=== PATIENT | male | born 1950 | race Caucasian/White ===

== ENCOUNTER 2016-12-30 14:03 | Inpatient (IN) | payer MEDICARE, BC ==
[~2016-12-30] VITALS: Ht 185.4 cm; Wt 123.1 kg
[2016-12-31] MEDS ORDERED: LOSA100T2 PO (11:47)
[2016-12-31] MEDS ORDERED: LORA10TA PO (11:47)
[2016-12-31] MEDS ORDERED: KRIL300C PO (11:47)
[2016-12-31] MEDS ORDERED: AMLO5TAB2 PO (11:47)
[2016-12-31] MEDS ORDERED: ALLO300T2 PO (11:47)
[2016-12-31] MEDS ORDERED: ASPI-110 PO (11:47)
[2016-12-31] MEDS ORDERED: OMEP20CA2 PO (11:47)
[2016-12-31] MEDS ORDERED: ZOCO20TA PO (11:47)
[2016-12-31] MEDS ORDERED: FOLI1TAB4 PO (12:34)
[2016-12-31] MEDS ORDERED: DIPH1TAB36 PO (12:34)
[2016-12-31] MEDS ORDERED: METH5INJ SQ (12:37)
[2017-01-17 07:10] VITALS: BP 143/75; PULSE 57; RESP 16; TEMP 98.4; O2SAT 96
[2017-01-17] MEDS ORDERED: HYDR-3288 PO (07:18)
[2017-01-17] MEDS ORDERED: ENOX40P SQ (07:19)
[2017-01-17] MEDS ORDERED: ASPI81CH37 CHEW (07:19)
[2017-01-17] MEDS ORDERED: INSULIN HUMAN REGULAR 1,000 UNITS/10 ML VIAL SQ PRN (07:45)
[2017-01-17] MEDS ORDERED: SODIUM CHLORID 0.9% 500 ML IV SCH (07:45)
[2017-01-17] MEDS: LACTATED RINGER'S 1000 ML IV SCH ×2 (07:45→08:00)
[2017-01-17] MEDS ORDERED: METOPROLOL TARTRATE 25 MG TAB PO PRN (07:45)
[2017-01-17] MEDS ORDERED: SODIUM CHLOR 0.9% 250 ML INJ 250 ML ONE (07:55)
[2017-01-17] MEDS ORDERED: ceFAZolin 2 GM PREMIX 50 ML ONE (07:55)
[2017-01-17] MEDS ORDERED: VANCOMYCIN HCL 1000 MG VIAL ONE (07:55)
[2017-01-17] MEDS ORDERED: DEXAMETHASONE SOD PHOS 20 MG/5 ML VIAL ONE (07:55)
[2017-01-17] MEDS: CHLORHEXIDINE GLUCONATE 4% SOLN 120 ML BTL TOP SCH (08:45)
[2017-01-17] MEDS: TRANEXAMIC ACID INJ 1,600 MG in SODIUM CHLORIDE 0.9% INJ 100 ML IV SCH ×2 (08:45→10:30)
[2017-01-17] MEDS: EXPAREL PERI-ARTICULAR INJECTION (TOTAL VOL. 60 ML) P-ARTICULR SCH ×4 (08:45→10:58)
[2017-01-17] MEDS ORDERED: VANCOMYCIN 1000 MG/NS 250 ML (for <70 kg) IV SCH ×2 (08:45)
[2017-01-17] MEDS: TRANEXAMIC PERI-ARTICULAR 3,000 MG/NS 100 ML P-ARTICULR SCH ×4 (08:45→10:58)
[2017-01-17] MEDS: POVIDONE IODINE 7.5% SCRUB 118 ML BOTTLE TOP SCH (08:45)
[2017-01-17] MEDS ORDERED: ceFAZolin 2 GM PREMIX 50 ML IV SCH (08:45)
[2017-01-17] MEDS ORDERED: ROPIVACAINE PERI-ARTICULAR INJECTION. PERIART SCH ×5 (08:45)
[2017-01-17] MEDS ORDERED: DEXAMETHASONE SOD PHOS 20 MG/5 ML VIAL IV ONE (08:45)
[2017-01-17] MEDS ORDERED: ACETAMINOPHEN/HYDROcodone 325 MG/7.5 MG TAB PO PRN (09:00)
[2017-01-17] MEDS ORDERED: NALOXONE HCL 0.4 MG/ML AMP IV PRN (09:00)
[2017-01-17] MEDS ORDERED: diphenhydrAMINE HCL 50 MG/ML VIAL IV PRN (09:00)
[2017-01-17] MEDS: LORATADINE 10 MG TAB PO SCH (09:00)
[2017-01-17] MEDS ORDERED: ZOLPIDEM TARTRATE 5 MG TAB PO PRN (09:00)
[2017-01-17] MEDS: SODIUM CHLORIDE 0.9% FLUSH 5 ML FLUSH IVF SCH ×2 (09:00→19:58)
[2017-01-17] MEDS: ALLOPURINOL 300 MG TAB PO SCH (09:00)
[2017-01-17] MEDS ORDERED: Post-op Orders (for Pharmacy) MISC XX ONE (09:00)
[2017-01-17] MEDS ORDERED: MORPHINE SULFATE 4 MG/ML INJ IV PUSH PRN (09:00)
[2017-01-17] MEDS ORDERED: ALUMINUM/MAGNESIUM/SIMETH 30 ML CUP PO PRN (09:00)
[2017-01-17] MEDS ORDERED: NON-FORMULARY DRUG (Losartan-Hydrochlorothiazide 1 TAB) PO SCH (09:00)
[2017-01-17] MEDS ORDERED: BISACODYL 10 MG SUPP PR PRN (09:00)
[2017-01-17] MEDS ORDERED: SODIUM CHLORIDE 0.9% FLUSH 5 ML FLUSH IVF PRN (09:00)
[2017-01-17] MEDS ORDERED: MAGNESIUM HYDROXIDE SUSP 30 ML CUP PO PRN (09:00)
[2017-01-17] MEDS ORDERED: ONDANSETRON HCL 4 MG/2 ML VIAL IVP PRN (09:00)
[2017-01-17] MEDS ORDERED: GENTAMICIN SULFATE 80 MG/2 ML VIAL ONE ×2 (09:16→11:39)
[2017-01-17] MEDS ORDERED: DEXAMETHASONE SOD PHOS 4 MG/ML VIAL ONE (09:33)
[2017-01-17] MEDS ORDERED: FAMOTIDINE 20 MG/2 ML VIAL ONE (09:33)
[2017-01-17] MEDS ORDERED: MIDAZOLAM HCL 5 MG/5 ML VIAL ONE (09:33)
[2017-01-17] MEDS ORDERED: PROPOFOL 200 MG/20 ML AMP IV ONE (09:55)
[2017-01-17] MEDS ORDERED: LACTATED RINGER'S 1000 ML INJ 1,000 ML IV ONE (09:56)
[2017-01-17] MEDS ORDERED: ONDANSETRON HCL 4 MG/2 ML VIAL IV PUSH ONE (09:56)
[2017-01-17] MEDS ORDERED: ePHEDrine/NS 25 MG/5 ML SYR IV ONE (09:56)
[2017-01-17] MEDS: HYDROCHLOROTHIAZIDE 25 MG TAB PO SCH (12:00)
[2017-01-17] MEDS: LOSARTAN 50 MG TAB PO SCH (12:00)
[2017-01-17] MEDS ORDERED: BUPIVACAINE LIPOSOME PF 1.3% 20 ML VIAL ONE (12:49)
--- NOTE | 2017-01-17 12:57 | MP ---
cc: MARILUZ CLARK DATE OF SURGERY 01/17/2017 PREOPERATIVE DIAGNOSIS Right knee osteoarthritis. POSTOPERATIVE DIAGNOSES Right knee osteoarthritis. PROCEDURE Right total knee arthroplasty. SURGEON Dr. Mariluz Clark CENTRIFUGAL OPERATOR Adryan Rankin PA-C ANESTHESIA Spinal. ESTIMATED BLOOD LOSS 50 cc COMPLICATIONS None. IMPLANTS USED DePuy Attune size 8 posterior stabilized femoral component, size 7 rotating platform tibial baseplate, size 6-mm polyethylene tibial insert, size 41-mm patella. JUSTIFICATION This patient is a 66-year-old male with a history of severe end-stage osteoarthritis involving the right knee. He has severe disabling pain with standing, walking, ambulation, weightbearing activities and even severe pain at rest. He has failed greater than two months of nonoperative conservative treatment to include medication therapy, injections, ambulatory assistive aids, home exercise program, weight loss attempts, activity modification. The patient's pain is severe and progressive in spite of conservative treatments. X-rays of the right knee reveal severe end-stage osteoarthritis with [id number] joint space narrowing, subchondral sclerosis, subchondral cysts, osteophyte formation and varus deformity. The patient was counseled as to the risks, benefits and alternatives to a total knee arthroplasty. The risks were discussed to include but are not limited to anesthesia, bleeding, infection, damage to nerves, blood vessels, failure of the components, blood clots, pulmonary embolism and even . The patient's pain is severe. He favored the benefits over the risks and did wish to proceed with surgery. PROCEDURE IN DETAIL Written consent was obtained. The patient was identified by name and taken to the operating room. Spinal anesthesia was administered as well as 2 grams of IV Ancef and 1 gram of IV vancomycin. A well-padded tourniquet was placed on the right thigh, the right lower extremity prepped and draped using isopropyl alcohol, Hibiclens solution and ChloraPrep solution. A time out was performed. An Esmarch bandage was used to exsanguinate the right lower extremity and the tourniquet inflated to 250 mmHg. A longitudinal incision was made over the anterior aspect of the right knee and medial parapatellar arthrotomy incision was performed. The patella was everted and patella resect guide was used to remove 9.5 mm of the patella. A size 41-mm guide was placed, three drill holes were placed and a 41-mm trial fit well. Attention was turned to the femur where an intramedullary guide tesha was placed and the guide was set to remove 10 mm of distal femur 5-degrees off the anatomic valgus axis alignment. An oscillating saw was used to perform the distal femoral cut. Attention was turned to the tibia where an extramedullary tibial guide was used to remove 5-mm off the lowest portion of the medial tibial plateau. The tibial guide was pinned in place and tibial cut was performed. Th 5-mm spacer block showed full extension. Attention was turned back to the femur where the AP sizer block measured a size 8. The anterior reference 3-degree external rotational guide was used to pin the size [address] The anterior, posterior and chamfer cuts were performed. A size 8 PCL box guide was pinned in place and PCL was boxed out with an oscillating saw. The medial and lateral meniscus remnants were removed as well as bone and soft tissue debris from the posterior portion of the knee. The size 7 tibial baseplate was pinned in place, the tibia was drilled and punched. Trial components were evaluated and final components cemented in place. The 6-mm tibial insert allowed for full extension to 0 degrees and flexion to 140, no evidence of tibial lift-off. Varus-valgus balance appeared appropriate and symmetric. The tourniquet was deflated. Bovie cautery was used for hemostasis. The knee was thoroughly irrigated with sterile saline antibiotic-impregnated solution. The arthrotomy incision was closed with #1 Vicryl suture, the subcutaneous layer closed with 2-0 Vicryl suture and the skin was closed with Dermabond. Sterile dressings were applied. The patient tolerated the procedure well. There was no intraoperative complication noted. Adryan Rankin, physician medical staff assistant certified, was present during the entire procedure to include patient positioning and the procedure itself. The medical necessity of a physician medical staff assistant was indicated in this case due to the complexity of the procedure. He assisted with appropriate manipulation of the leg and retraction of muscle, tendon, bone and neurovascular structures. He assisted with preparation of bone and also implantation of the prosthetic replacement. MD ANTONETTE Roman/NANCY /12:14 PM /12:38 PM
[2017-01-17] MEDS ORDERED: DO NOT ADM ANY ANTICOAGULANT DRUGS XX PRN (13:15)
[2017-01-17] MEDS: SODIUM CHLOR 0.9% 1000 ML INJ 1,000 ML IV SCH ×2 (13:15→19:58)
--- NOTE | 2017-01-17 14:14 | RADRPT ---
EXAM DATE/TIME: 01/17/2017 13:35 [facility] COMPARISON: No previous studies available for comparison. INDICATIONS : Post op right knee. MEDICAL HISTORY : None. SURGICAL HISTORY : None. ENCOUNTER: Initial ACUITY: 1 day PAIN SCORE: 4/10 LOCATION: Right knee FINDINGS: AP and lateral views of the right knee demonstrate changes consistent with recent total knee arthropl asty with metallic hardware in place in the distal femur and proximal tibia. There is a radiolucent p atellar component. There is soft tissue gas present, as expected. CONCLUSION: Expected changes are present following recent right total knee arthroplasty. Parmjit Neil MD on January 17, 2017 at 14:09 Board Certified Radiologist. This report was verified electronically.
[2017-01-17 16:51] VITALS: BP 128/80; PULSE 67; RESP 18; TEMP 97; O2SAT 94
--- NOTE | 2017-01-17 18:23 | PD.CONS ---
HPI Service [facility] Consult Requested By Primary Care Physician Michael Early DO Diagnoses: History of Present Illness This is a very pleasant 66-year-old male . The patient has problems with the right knee for a number of years. This problem has been resistant to conservative management in terms of both function and pain control. The patient had left total knee replacement earlier today. The patient was seen in the recovery unit today by the undersigned. The patient is alert and oriented and denies any complaints . He has already walked postoperatively a few steps. He was seen in the presence of his nurse . Review of Systems Other 10 systems reviewed and negative except for the above Past Family Social History Past Medical History Hypertension Hyperlipidemia Acid reflux disease Left knee arthritis Sarcoidosis, with pulmonary nodules, this affected his vision at some point, however this has gotten better with methotrexate Prostate cancer Cataracts Hearing loss for which she uses hearing aids Past Surgical History Prostate cancer surgery Left total knee replacement Right shoulder rotator cuff surgery Reported Medications Reported Meds & Active Scripts Active Aspirin Low Dose (Aspirin) 81 Mg Chew 81 Mg CHEW BID Lovenox Inj (Enoxaparin Sodium) 40 Mg/0.4 Ml Syr 40 Mg SQ DAILY Anthon (Hydrocodone-Acetaminophen) 7.5-325 mg Tab 1-2 Tab PO Q6H PRN Reported Methotrexate Inj 50 Mg/2 Ml Inj 0.8 Ml SQ WEEKLY Tylenol Pm Extra Strength (Diphenhydramine-Acetaminophen) 25-500 Mg Tab 2 Tab PO HS PRN Folate (Folic Acid) 1 Mg Tab 1 Mg PO DAILY Aspirin 81 (Aspirin) 81 Mg Tabdr 81 Mg PO DAILY Loratadine 10 Mg Tab 10 Mg PO DAILY Krill Oil 300 Mg Cap 1 Cap PO DAILY Amlodipine (Amlodipine Besylate) 5 Mg Tab 5 Mg PO HS Omeprazole 20 Mg Cap 1 Cap PO HS Zocor (Simvastatin) 20 Mg Tab 20 Mg PO HS Losartan-Hydrochlorothiazide 100-25 Mg Tab 1 Tab PO DAILY Allopurinol 300 Mg Tab 300 Mg PO DAILY Allergies: Coded Allergies: No Known Allergies (Verified , 01/17/17) Family History Reviewed but not contributory Social History No smoking, no alcohol, no illicit drug use Physical Exam Vital Signs Vital Signs Date Time Temp Pulse Resp B/P Pulse Ox O2 Delivery O2 Flow Rate FiO2 01/17/17 16:51 97.0 67 18 128/80 94 01/17/17 16:34 98.1 67 16 139/85 95 Nasal Cannula 2 01/17/17 15:00 98.0 75 16 127/81 94 Nasal Cannula 2 01/17/17 14:30 66 16 127/81 96 Nasal Cannula 2 01/17/17 14:15 74 16 95 Nasal Cannula 2 01/17/17 14:00 96.6 66 16 127/81 96 Nasal Cannula 2 01/17/17 13:45 66 16 127/81 96 Nasal Cannula 2 01/17/17 13:30 96.6 65 16 125/79 95 Nasal Cannula 2 01/17/17 13:15 64 16 137/85 96 Nasal Cannula 2 01/17/17 13:00 62 16 137/75 95 Nasal Cannula 2 01/17/17 12:45 96 16 119/82 97 Nasal Cannula 2 01/17/17 12:38 94.2 69 16 125/71 91 Nasal Cannula 2 01/17/17 07:10 98.4 57 16 143/75 96 Physical Exam GENERAL: This is a well-nourished, well-developed patient, in no apparent distress. SKIN: No rashes, ecchymoses or lesions. Cool and dry. HEAD: Atraumatic. Normocephalic. No temporal or scalp tenderness. EYES: Pupils equal round and reactive. Extraocular motions intact. No scleral icterus. No injection or drainage. ENT: Nose without bleeding, purulent drainage or septal hematoma. Throat without erythema, tonsillar hypertrophy or exudate. Uvula midline. Airway patent. NECK: Trachea midline. No JVD or lymphadenopathy. Supple, nontender, no meningeal signs. CARDIOVASCULAR: Regular rate and rhythm without murmurs, gallops, or rubs. RESPIRATORY: Clear to auscultation. Breath sounds equal bilaterally. No wheezes , rales, or rhonchi. GASTROINTESTINAL: Abdomen soft, non-tender, nondistended. No hepato-splenomegaly , or palpable masses. No guarding. MUSCULOSKELETAL: Right lower extremity clean dry surgical dressings NEUROLOGICAL: Awake and alert. Cranial nerves II through XII intact. Normal speech. Laboratory Laboratory Tests Test 01/17/17 07:49 Blood Type A POSITIVE Antibody Screen NEGATIVE Blood Bank Comment Imaging Last Impressions Knee X-Ray 01/17/17 0806 Signed Impressions: Service Date/Time: Tuesday, January 17, 2017 13:35 - CONCLUSION: Expected changes are present following recent right total knee arthroplasty. Parmjit Neil MD A/P Assessment and Plan Assessment End-stage osteoarthritis right knee Status post right total knee replacement on 01/17/17 Significant history for sarcoidosis, hypertension, hyperlipidemia, overweight Management Pain management Physical therapy Bowel regimen Patient needs to lose some weight Wound management per orthopedics Follow labs Keep hemoglobin above 8 Replace electrolytes as needed Discussed with patient Discussed with nurse Thank you for this consultation We will follow daily while hospitalized Discussed With: Nurse Dylon Carmona MD Jan 17, 2017 18:23
[2017-01-17 20:20] VITALS: BP 126/69; PULSE 60; RESP 17; TEMP 97.2; O2SAT 93
[2017-01-17] MEDS ORDERED: amLODIPine BESYLATE 5 MG TAB PO SCH (21:00)
[2017-01-17] MEDS ORDERED: PANTOPRAZOLE SOD 20 MG DELAYED RELEASE TAB PO SCH (21:00)
[2017-01-18] MEDS: ACETAMINOPHEN/HYDROcodone 325 MG/7.5 MG TAB PO PRN ×4 (00:16→12:53)
[2017-01-18 00:20] VITALS: BP 115/62; PULSE 59; RESP 16; TEMP 97.4; O2SAT 94
[2017-01-18] MEDS: SODIUM CHLOR 0.9% 1000 ML INJ 1,000 ML IV SCH (03:40)
[2017-01-18 04:05] VITALS: BP 117/67; PULSE 58; RESP 16; TEMP 96.4; O2SAT 95
[2017-01-18 08:02] VITALS: BP 135/70; PULSE 52; RESP 18; TEMP 97.1; O2SAT 98
--- NOTE | 2017-01-18 08:32 | PD.ORT.PN ---
Subjective Post Op Day #: 1 Subjective Remarks minimal pain. Objective Vitals Vital Signs Date Time Temp Pulse Resp B/P Pulse Ox O2 Delivery O2 Flow Rate FiO2 01/18/17 07:43 Room Air 01/18/17 04:05 96.4 58 16 117/67 95 01/18/17 00:20 97.4 59 16 115/62 94 01/17/17 20:20 97.2 60 17 126/69 93 01/17/17 18:44 Room Air 01/17/17 17:45 Room Air 01/17/17 16:51 97.0 67 18 128/80 94 01/17/17 16:34 98.1 67 16 139/85 95 Nasal Cannula 2 01/17/17 15:00 98.0 75 16 127/81 94 Nasal Cannula 2 01/17/17 14:30 66 16 127/81 96 Nasal Cannula 2 01/17/17 14:15 74 16 95 Nasal Cannula 2 01/17/17 14:00 96.6 66 16 127/81 96 Nasal Cannula 2 01/17/17 13:45 66 16 127/81 96 Nasal Cannula 2 01/17/17 13:30 96.6 65 16 125/79 95 Nasal Cannula 2 01/17/17 13:15 64 16 137/85 96 Nasal Cannula 2 01/17/17 13:00 62 16 137/75 95 Nasal Cannula 2 01/17/17 12:45 96 16 119/82 97 Nasal Cannula 2 01/17/17 12:38 94.2 69 16 125/71 91 Nasal Cannula 2 I/O 01/17/17 01/17/17 01/17/17 01/18/17 01/18/17 01/18/17 07:00 15:00 23:00 07:00 15:00 23:00 Intake Total 1530 ml 1424 ml 868 ml Output Total 750 ml 400 ml 350 ml Balance 780 ml 1024 ml 518 ml Intake Oral 720 ml 240 ml IV Total 300 ml 704 ml 628 ml Other 1230 ml Output Urine Total 150 ml 400 ml 350 ml Estimated Blood Loss 100 ml Other 500 ml # Bowel Movements 0 Imaging Last 24 hours Impressions Knee X-Ray 01/17/17 0855 Signed Impressions: Service Date/Time: Tuesday, January 17, 2017 13:35 - CONCLUSION: Expected changes are present following recent right total knee arthroplasty. Parmjit Neil MD Objective Remarks in bed, nad incision no erythema, no drainage neg homans nvi Assessment & Plan Ortho Post Op Day #: 1 Problem List: Assessment and Plan s/p R TKA wbat daily dressing change lovenox rx in chart d/c planning home with hhc and pt - cleared for today if pain under control f/up dr. vazquez 2 weeks Michael Rankin Jan 18, 2017 08:32
--- NOTE | 2017-01-18 08:34 | HHI.DCPOC ---
Discharge Care Plan Diagnosis: (1) Primary localized osteoarthrosis, lower leg Your Health Problems Are: Difficulty with ADL Goals to Promote Your Health * To prevent worsening of your condition and complications * To maintain your health at the optimal level Directions to Meet Your Goals Take your medications as prescribed Follow your dietary instruction Follow activity as directed Keep your appointments as scheduled Take your immunizations and boosters as scheduled If your symptoms worsen call your PCP, if no PCP go to Urgent Care Center or Emergency Room Smoking is Dangerous to Your Health. Avoid second hand smoke Call the 24-hour hour crisis hotline for domestic abuse at Michael Rankin Jan 18, 2017 08:34
--- NOTE | 2017-01-18 08:35 | HHI.FF ---
Face to Face Verification Diagnosis: (1) Primary localized osteoarthrosis, lower leg Physical Therapy Gait training, Safety evaluation, Transfer training, bed to chair Knee: Total knee, Protocol: Right, Full weight bearing Right LE Weight Bearing: WB as tolerated Nursing RN: 3 days/week x 2 weeks Nursing: Keri teaching, Dressing changes Dressing Changes: Daily dressing change I have seen patient Parmjit Arambula on 01/18/17. My clinical findings support the need for the requested home health care services because: Limited ability to care for self High risk of falls I certify that my clinical findings support that this patient is homebound because: Post-op weakness Unsteady gait/balance Michael Rankin Jan 18, 2017 08:34
[2017-01-18] MEDS: LOSARTAN 50 MG TAB PO SCH (08:38)
[2017-01-18] MEDS: LORATADINE 10 MG TAB PO SCH (08:38)
[2017-01-18] MEDS: ALLOPURINOL 300 MG TAB PO SCH (08:39)
[2017-01-18] MEDS: HYDROCHLOROTHIAZIDE 25 MG TAB PO SCH (08:39)
[2017-01-18] MEDS: POVIDONE IODINE 7.5% SCRUB 118 ML BOTTLE TOP SCH (08:45)
[2017-01-18] MEDS: CHLORHEXIDINE GLUCONATE 4% SOLN 120 ML BTL TOP SCH (08:45)
[2017-01-18 08:48] LABS: HEMATOCRIT 34.7 % (39.0-51.0); MEAN CELL VOLUME 88.7 FL (80.0-100.0); MEAN CORPUSCULAR HEMOGLOBIN 29.9 PG (27.0-34.0); MEAN CORPUSCULAR HGB CONC 33.8 % (32.0-36.0); PLATELET COUNT 191 TH/MM3 (150-450); RED BLOOD COUNT 3.92 MIL/MM3 (4.50-5.90); RED CELL DISTRIBUTION WIDTH 14.5 % (11.6-17.2); REVIEW FLAG FINAL; WHITE BLOOD COUNT 18.7 TH/MM3 (4.0-11.0)
[2017-01-18] MEDS ORDERED: PSYLLIUM FIBER SF/GF 6 GM POWD PKT PO SCH (09:00)
[2017-01-18] MEDS ORDERED: MAGNESIUM HYDROXIDE SUSP 30 ML CUP PO SCH (09:15)
[2017-01-18 09:16] LABS: BICARBONATE 26.6 MEQ/L (21.0-32.0); MAGNESIUM 1.7 MG/DL (1.5-2.5); POTASSIUM 3.4 MEQ/L (3.5-5.1)
--- NOTE | 2017-01-18 11:15 | HHI.PR ---
Subjective Subjective Remarks ambulating in hallway no fever no cp no sob has had indurated area oral cavity, back of left molar for 3 months Review of Systems Constitutional Constitutional Remarks 12 point ROS completed, negative except as noted above Vitals/Results Intake & Output 01/17/17 01/17/17 01/18/17 15:00 23:00 07:00 Intake Total 1530 ml 1424 ml 868 ml Output Total 750 ml 400 ml 350 ml Balance 780 ml 1024 ml 518 ml Intake Oral 720 ml 240 ml IV Total 300 ml 704 ml 628 ml Other 1230 ml Output Urine Total 150 ml 400 ml 350 ml Estimated Blood Loss 100 ml Other 500 ml # Bowel Movements 0 Vital Signs Vital Signs Date Time Temp Pulse Resp B/P Pulse Ox O2 Delivery O2 Flow Rate FiO2 01/18/17 08:02 97.1 52 18 135/70 98 01/18/17 07:43 Room Air 01/18/17 04:05 96.4 58 16 117/67 95 01/18/17 00:20 97.4 59 16 115/62 94 01/17/17 20:20 97.2 60 17 126/69 93 01/17/17 18:44 Room Air 01/17/17 17:45 Room Air 01/17/17 16:51 97.0 67 18 128/80 94 01/17/17 16:34 98.1 67 16 139/85 95 Nasal Cannula 2 01/17/17 15:00 98.0 75 16 127/81 94 Nasal Cannula 2 01/17/17 14:30 66 16 127/81 96 Nasal Cannula 2 01/17/17 14:15 74 16 95 Nasal Cannula 2 01/17/17 14:00 96.6 66 16 127/81 96 Nasal Cannula 2 01/17/17 13:45 66 16 127/81 96 Nasal Cannula 2 01/17/17 13:30 96.6 65 16 125/79 95 Nasal Cannula 2 01/17/17 13:15 64 16 137/85 96 Nasal Cannula 2 01/17/17 13:00 62 16 137/75 95 Nasal Cannula 2 01/17/17 12:45 96 16 119/82 97 Nasal Cannula 2 01/17/17 12:38 94.2 69 16 125/71 91 Nasal Cannula 2 CBC/BMP: 01/18/17 0835 01/18/17 0835 Lab Results Laboratory Tests Test 01/18/17 08:35 White Blood Count 18.7 TH/MM3 Red Blood Count 3.92 MIL/MM3 Hemoglobin 11.7 GM/DL Hematocrit 34.7 % Mean Corpuscular Volume 88.7 FL Mean Corpuscular Hemoglobin 29.9 PG Mean Corpuscular Hemoglobin 33.8 % Concent Red Cell Distribution Width 14.5 % Platelet Count 191 TH/MM3 Mean Platelet Volume 7.7 FL Sodium Level 141 MEQ/L Potassium Level 3.4 MEQ/L Chloride Level 105 MEQ/L Carbon Dioxide Level 26.6 MEQ/L Anion Gap 9 MEQ/L Blood Urea Nitrogen 16 MG/DL Creatinine 1.05 MG/DL Estimat Glomerular Filtration 70 ML/MIN Rate Random Glucose 127 MG/DL Calcium Level 8.3 MG/DL Phosphorus Level 2.9 MG/DL Magnesium Level 1.7 MG/DL Physical Exam General General Appearance: Well Developed, Well Nourished, No Acute Distress, Comfortable Eyes Eye Exam: Pupils Equal, Pupils Reactive, Sclera White, Extraocular Movement Intact Ears & Nose Ears & Nose Exam: Nasal Mucosa [place] Throat Throat Exam: Oral Mucosa [place] & Moist Neck Neck Exam: Neck Supple, Trachea Midline Pulmonary Resp Exam: Clear Bilaterally Cardiology CV Exam: Regular, Good Perfusion Gastrointestinal/Abdomen GI Exam: Soft, Non-Tender, Bowel Sounds Present, Non-Distended Musculoskeletal MS Exam: Joints Intact MS Remarks Right knee dressing D/I Integumentary Skin Exam: Warm, Dry Extremeties Extremities Exam: Pedal Pulses Palpable, Trace Edema Neurologic Neuro Exam: Alert, Awake, Oriented, Speech Clear, Moving All Extremities, No Focal Deficits Psychiatric Psych Exam: Appropriate Responses VTE Prophylaxis VTE Prophylaxis Device: TEDs VTE Prophylaxis Meds: Lovenox Assessment/Plan Assessment/Plan End-stage osteoarthritis right knee Status post right total knee replacement on 01/17/17 Significant history for sarcoidosis, hypertension, hyperlipidemia Management Pain management Physical therapy Bowel regimen Wound management per orthopedics Follow labs Keep hemoglobin above 8 Replace electrolytes as needed Leukocytosis, no fever, etiology unclear if still here tomorrow, repeat CBC needs to f/u ENT for oral lesion, verbalizes understanding per ortho, discharge today with HHC/PT Discussed with patient Discussed with nurse Discussed with Stella Lagos Jan 18, 2017 11:15
[2017-01-18] MEDS ORDERED: ENOXAPARIN SODIUM 40 MG/0.4 ML SYRINGE SQ SCH (11:30)
[2017-01-18] MEDS ORDERED: POTASSIUM CL 40 MEQ/30 ML LIQ UDC PO ONE (11:30)
[2017-01-18] MEDS: SODIUM CHLORIDE 0.9% FLUSH 5 ML FLUSH IVF SCH (11:41)
[2017-01-18 11:54] VITALS: RESP 17
[2017-01-18] MEDS ORDERED: DOCUSATE SODIUM 100 MG CAP PO SCH (21:00)
[2017-01-18] MEDS ORDERED: SENNOSIDES 8.6 MG TAB PO SCH (21:00)
[2017-01-18] MEDS ORDERED: MULTIVITAMINS/MINERALS THERAPEUTIC TAB PO SCH (21:00)
--- NOTE | 2017-01-26 10:48 | MD ---
cc: MARILUZ BERGER ADMISSION DATE: 01/17/2017 DISCHARGE DATE: 01/18/2017 ADMISSION DIAGNOSIS Severe degenerative osteoarthritis right knee DISCHARGE DIAGNOSIS Severe degenerative osteoarthritis right knee HISTORY OF PRESENT ILLNESS Mr. Arambula is a 66-year-old male who presented to the [facility] for evaluation by Dr. Mariluz Berger regarding his severe and progressive right knee pain. The patient's does have a history of a left total knee arthroplasty which is well functioning. The patient states his right knee is currently inhibiting his activities of daily living and his ability to exercise. He states he has a constant severe right knee pain that is aggravated by weightbearing activities. In the past, he has tried medications, bracing, home exercise program, physical therapy, multiple corticosteroid injections and even viscosupplementation injections without significant relief of symptoms. The patient does have x-ray evidence of severe degenerative osteoarthritis of the right knee. While in the office, the patient was counseled on the diagnosis and treatment options. The risks, benefits, and indications were all discussed in great detail. The patient did elect to proceed with surgical intervention to include a right total knee arthroplasty. Date of surgery 01/17/2017, right total knee arthroplasty. Postop after surgery, the patient admitted to [facility] where he received appropriate medical management, pain control, DVT prophylaxis and physical therapy. DISCHARGE Once being discharged from the hospital, the patient is cleared to go home where he will receive home health care and home physical therapy. He is in stable condition. He may weight-bear as tolerated. The patient is to receive daily dressing changes and has been instructed on appropriate wound care management. The patient has been provided prescriptions for pain control as well as DVT prophylaxis medication. He has also been provided a follow-up appointment to see Dr. Mariluz Berger in the office approximately two weeks from date of surgery. The patient has asked appropriate questions which have been answered. The patient has been discharged. Dictated by TASHIA Brandon MD ANTONETTE Roman/PARADISE /9:13 AM /10:35 AM
== END 2017-01-18 13:53 | disposition home health service (06) | DRG 470 ==
LOC: HSDI 01-17 07:01 → N06B 01-17 16:53
PROVIDERS: ADMIT Orthopaedic Surgery Sports Medicine; ATTEND Orthopaedic Surgery Sports Medicine
PROC: 3E0T3CZ (ICD-10-PCS; 2017-01-17)
PROC: 0SRC0J9 Replacement of Right Knee Joint with Synthetic Substitute, Cemented, Open Approach (ICD-10-PCS; principal; 2017-01-17 10:14)
DX: M17.11 Unilateral primary osteoarthritis, right knee (principal); D86.9 Sarcoidosis, unspecified; I10 Essential (primary) hypertension; E78.5 Hyperlipidemia, unspecified; K21.9 Gastro-esophageal reflux disease without esophagitis; H91.90 Unspecified hearing loss, unspecified ear; H26.9 Unspecified cataract; E66.3 Overweight; K13.70 Unspecified lesions of oral mucosa; Z68.35 Body mass index [BMI] 35.0-35.9, adult; Z85.46 Personal history of malignant neoplasm of prostate
CPT/HCPCS: 73560; 80048; 83735; 84100; 85027; 86850; 86900; 86901; 94150; C1776; C9290; J0690; J1100; J1580; J1650; J2250; J2270; J2405; J3370; J7030; J7050; J7120; L1830

== ENCOUNTER → 2016-12-31 | Outpatient (CLI) | payer MEDICARE, BC ==
[~2016-12-31] MED LIST: ALLO100 PO; ALLO300T2 PO; AMLO5TAB2 PO; ASPI-110 PO; ASPI81 PO; ASPI81CH37 CHEW; ATEN1TAB73 PO; CELE100 PO; COZA25TA PO; DIPH1TAB36 PO; ENOX40P SQ; ERYT333T19 PO; FOLI1TAB4 PO; HYDR-3288 PO; KRIL300C PO; LORA10TA PO; LORTA5 PO; LOSA100T2 PO; METH2.5 PO; METH5INJ SQ; METH750T2 PO; OMEP20CA2 PO; OMEP20TA39 PO; SIMV20 PO; ZOCO20TA PO
--- NOTE | 2016-12-31 12:51 | RADRPT ---
EXAM DATE/TIME: 12/31/2016 12:29 [facility] COMPARISON: No previous studies available for comparison. INDICATIONS : Evaluate pneumonia, pneumothorax or communicable disease. Pre-op right knee replacement 01/17/2017. MEDICAL HISTORY : None. SURGICAL HISTORY : None. ENCOUNTER: Initial ACUITY: 1 day PAIN SCORE: 0/10 LOCATION: Bilateral chest FINDINGS: PA and lateral views of the chest demonstrate the lungs to be symmetrically aerated without evidence of mass, infiltrate or effusion. The cardiomediastinal contours are unremarkable. Osseous structure s are intact. CONCLUSION: No acute disease. Alberto Hernandez MD on December 31, 2016 at 12:49 Board Certified Radiologist. This report was verified electronically.
[2016-12-31 13:00] LABS: AUTOMATED NEUTROPHIL # 4.8 TH/MM3 (1.8-7.7); BASOPHIL # 0.1 TH/MM3 (0-0.2); BASOPHIL % 1.3 % (0.0-2.0); EOSINOPHIL # 0.1 TH/MM3 (0-0.4); EOSINOPHIL % 2.1 % (0.0-4.0); HEMATOCRIT 39.7 % (39.0-51.0); HEMO FLAGS DIFF FINAL; LYMPH % 20.5 % (9.0-44.0); LYMPHOCYTE # 1.4 TH/MM3 (1.0-4.8); MEAN CELL VOLUME 88.7 FL (80.0-100.0); MEAN CORPUSCULAR HEMOGLOBIN 30.3 PG (27.0-34.0); MEAN CORPUSCULAR HGB CONC 34.1 % (32.0-36.0); NEUT % 69.1 % (16.0-70.0); PLATELET COUNT 186 TH/MM3 (150-450); RED BLOOD COUNT 4.48 MIL/MM3 (4.50-5.90); RED CELL DISTRIBUTION WIDTH 14.6 % (11.6-17.2)
[2016-12-31 13:01] LABS: BLOOD, URINE NEG (NEG); GLUCOSE,URINE NEG (NEG); KETONE, URINE NEG (NEG); NITRITE,URINE NEG (NEG); PH, URINE 7.5 (5.0-8.5); URINE COLOR YELLOW (YELLW/STRAW)
[2016-12-31 13:07] LABS: APTT (PATIENT) 29.8 SEC (24.3-30.1); INTERNATIONAL NORMALIZED RATIO 0.9 RATIO; PROTHROMBIN TIME - PATIENT 10.3 SEC (9.8-11.6)
[2016-12-31 13:09] LABS: COMMENT (UR) CULT NOT INDICATED; CULTURE IF INDICATED CULT NOT INDICATED
[2016-12-31 13:29] LABS: ANION GAP 7 MEQ/L (5-15); BICARBONATE 30.9 MEQ/L (21.0-32.0); BLOOD UREA NITROGEN 17 MG/DL (7-18); CHLORIDE 105 MEQ/L (98-107); GLUCOSE,FASTING 88 MG/DL (74-99); POTASSIUM 3.8 MEQ/L (3.5-5.1); SODIUM (NA) 143 MEQ/L (136-145)
[2016-12-31 13:32] LABS: ALKALINE PHOSPHATASE 68 U/L (45-117); ALT (GPT) 33 U/L (12-78); AST (GOT) 16 U/L (15-37); GLOMERULAR FILTRATION RATE 69 ML/MIN (>89); TOTAL BILIRUBIN ADULT 0.8 MG/DL (0.2-1.0)
[2016-12-31 13:51] LABS: WESTERGREN SEDIMENTATION RATE 7 mm/hr (0-20)
--- NOTE | 2017-01-01 16:53 | EKG ---
Date Performed: 12/31/2016 Time Performed: 11:33:13 PTAGE: 66 years EKG: SINUS BRADYCARDIA MARKED LEFT AXIS DEVIATION RIGHT BUNDLE BRANCH BLOCK ABNORMAL ECG NO PREVIOUS TRACING DOCTOR: Neo Presley Interpretating Date/Time 01/01/2017 16:52:26
== END ==
LOC: CPRE 11:04
PROVIDERS: ATTEND Orthopaedic Surgery Sports Medicine
DX: Z01.810 Encounter for preprocedural cardiovascular examination (principal); Z01.812 Encounter for preprocedural laboratory examination; Z01.818 Encounter for other preprocedural examination; M17.11 Unilateral primary osteoarthritis, right knee; R94.31 Abnormal electrocardiogram [ECG] [EKG]
CPT/HCPCS: 36415; 71020; 80053; 81001; 85025; 85610; 85652; 85730; 93005

== ENCOUNTER → 2017-03-08 | Outpatient (CLI) | payer MEDICARE, BC ==
[~2017-03-08] MED LIST changes: -ALLO100 PO; -ASPI-110 PO; -ASPI81 PO; -ATEN1TAB73 PO; -CELE100 PO; -COZA25TA PO; -ERYT333T19 PO; -LORTA5 PO; -METH2.5 PO; -METH750T2 PO; -OMEP20TA39 PO; -SIMV20 PO
[2017-03-08 13:18] LABS: AUTOMATED NEUTROPHIL # 4.7 TH/MM3 (1.8-7.7); BASOPHIL % 0.7 % (0.0-2.0); EOSINOPHIL # 0.2 TH/MM3 (0-0.4); EOSINOPHIL % 2.3 % (0.0-4.0); HEMATOCRIT 40.2 % (39.0-51.0); HEMO FLAGS DIFF FINAL; LYMPH % 20.8 % (9.0-44.0); LYMPHOCYTE # 1.4 TH/MM3 (1.0-4.8); MEAN CELL VOLUME 89.9 FL (80.0-100.0); MEAN CORPUSCULAR HEMOGLOBIN 29.3 PG (27.0-34.0); MEAN CORPUSCULAR HGB CONC 32.6 % (32.0-36.0); MONO % 7.9 % (0.0-8.0); NEUT % 68.3 % (16.0-70.0); PLATELET COUNT 228 TH/MM3 (150-450); RED BLOOD COUNT 4.48 MIL/MM3 (4.50-5.90); RED CELL DISTRIBUTION WIDTH 15.3 % (11.6-17.2); WHITE BLOOD COUNT 6.8 TH/MM3 (4.0-11.0)
[2017-03-08 13:38] LABS: ALKALINE PHOSPHATASE 72 U/L (45-117); ALT (GPT) 33 U/L (12-78); ANION GAP 9 MEQ/L (5-15); AST (GOT) 18 U/L (15-37); BICARBONATE 27.8 MEQ/L (21.0-32.0); BLOOD UREA NITROGEN 13 MG/DL (7-18); CHLORIDE 106 MEQ/L (98-107); GLOMERULAR FILTRATION RATE 69 ML/MIN (>89); POTASSIUM 3.7 MEQ/L (3.5-5.1); SODIUM (NA) 143 MEQ/L (136-145); TOTAL BILIRUBIN ADULT 0.9 MG/DL (0.2-1.0)
== END ==
LOC: PLAB 09:56
DX: D86.8 Sarcoidosis of other sites (principal); Z79.899 Other long term (current) drug therapy
CPT/HCPCS: 36415; 80053; 85025

== ENCOUNTER → 2017-12-06 | Outpatient (CLI) | payer MEDICARE, BC ==
[~2017-12-06] MED LIST changes: -ASPI81CH37 CHEW; +ASPI81CH6 CHEW
[2017-12-06 13:07] LABS: AUTOMATED NEUTROPHIL # 3.2 TH/MM3 (1.8-7.7); BASOPHIL # 0.1 TH/MM3 (0-0.2); BASOPHIL % 1.4 % (0.0-2.0); EOSINOPHIL # 0.2 TH/MM3 (0-0.4); EOSINOPHIL % 3.1 % (0.0-4.0); HEMATOCRIT 40.2 % (39.0-51.0); HEMOGLOBIN 13.8 GM/DL (13.0-17.0); LYMPH % 28.7 % (9.0-44.0); LYMPHOCYTE # 1.6 TH/MM3 (1.0-4.8); MEAN CELL VOLUME 89.7 FL (80.0-100.0); MEAN CORPUSCULAR HEMOGLOBIN 30.7 PG (27.0-34.0); MEAN CORPUSCULAR HGB CONC 34.2 % (32.0-36.0); MEAN PLATELET VOLUME 7.6 FL (7.0-11.0); MONO % 9.7 % (0.0-8.0); MONOCYTE # 0.5 TH/MM3 (0-0.9); NEUT % 57.1 % (16.0-70.0); PLATELET COUNT 245 TH/MM3 (150-450); RED BLOOD COUNT 4.49 MIL/MM3 (4.50-5.90); RED CELL DISTRIBUTION WIDTH 15.3 % (11.6-17.2); WHITE BLOOD COUNT 5.6 TH/MM3 (4.0-11.0)
[2017-12-06 13:36] LABS: AST (GOT) 41 U/L (15-37); BICARBONATE 31.4 MEQ/L (21.0-32.0); BLOOD UREA NITROGEN 22 MG/DL (7-18); CALCIUM 9.2 MG/DL (8.5-10.1); CHLORIDE 107 MEQ/L (98-107); CREATININE 1.26 MG/DL (0.60-1.30); GLOMERULAR FILTRATION RATE 57 ML/MIN (>89); GLUCOSE,RANDOM 98 MG/DL (74-106); SODIUM (NA) 143 MEQ/L (136-145)
[2017-12-06 13:39] LABS: ALKALINE PHOSPHATASE 82 U/L (45-117); ALT (GPT) 64 U/L (12-78); TOTAL BILIRUBIN ADULT 0.8 MG/DL (0.2-1.0); TOTAL PROTEIN 7.4 GM/DL (6.4-8.2)
== END ==
LOC: PLAB 10:26
DX: Z79.899 Other long term (current) drug therapy (principal)
CPT/HCPCS: 36415; 80053; 85025

== ENCOUNTER 2018-09-23 13:01 | Observation (INO) ==
[2018-09-23] MEDS ORDERED: Aspirin 325 MG Tablet PO ONE (14:14)
--- NOTE | 2018-09-23 14:14 | ECG ---
Date Performed: 09/23/2018 Time Performed: 13:39:14 PTAGE: 68 years EKG: ATRIAL FIBRILLATION BORDERLINE LEFT AXIS DEVIATION RIGHT BUNDLE BRANCH BLOCK ABNORMAL ECG C ompared to prior electrocardiogram, Atrial fibrillation is now present. PREVIOUS TRACING : 12/31/2016 11.33 DOCTOR: Prakash Mar Interpretating Date/Time 09/23/2018 14:12:40
[2018-09-23 15:49] LABS: Baso # (Auto) 0.1 th/mm3 (0.0-0.2); Baso % (Auto) 1.3 % (0.0-2.0); Eos # (Auto) 0.1 th/mm3 (0.0-0.4); Eos % (Auto) 0.8 % (0.0-4.0); Hematocrit 40.3 % (39.0-51.0); Hemoglobin 13.8 gm/dL (13.0-17.0); Lymph # (Auto) 1.8 th/mm3 (1.0-4.8); Lymph % (Auto) 22.2 % (9.0-44.0); Mean Corpuscular HGB Conc 34.3 % (32.0-36.0); Mean Corpuscular Hemoglobin 31.4 pg (27.0-34.0); Mean Corpuscular Volume 91.7 fL (80.0-100.0); Mean Platelet Volume 8.4 fL (7.0-11.0); Mono # (Auto) 0.6 th/mm3 (0.0-0.9); Mono % (Auto) 7.8 % (0.0-8.0); Neut # (Auto) 5.5 th/mm3 (1.8-7.7); Neut % (Auto) 67.9 % (16.0-70.0); Platelet Count 243 th/mm3 (150-450); Red Blood Count 4.39 mil/mm3 (4.50-5.90); Red Cell Distribution Width 14.6 % (11.6-17.2); White Blood Count 8.1 th/mm3 (4.0-11.0)
--- NOTE | 2018-09-23 15:50 | XR ---
EXAM DATE: 09/23/2018 3:22 PM EST AGE/SEX: 68 years / Male INDICATIONS: Vertigo. CLINICAL DATA: This is the patient's initial encounter. Patient reports that signs and symptoms have been present for 1 day and indicates a pain score of 0/10. MEDICAL/SURGICAL HISTORY: None. None. [place] [facility] [place]. . FINDINGS: A single AP view of the chest demonstrates the lungs to be symmetrically aerated without evidence of mass, infiltrate or effusion. The cardiomediastinal contours are unremarkable. Osseous structures a re intact. CONCLUSION: No evidence of acute cardiopulmonary disease. Electronically signed by: Parmjit Samuel MD 09/23/2018 3:49 PM EST
[2018-09-23 16:06] LABS: Alkaline Phosphatase 82 U/L (45-117); Total Protein 7.7 g/dL (6.4-8.2)
[2018-09-23 16:07] LABS: Alanine Aminotransferase 40 U/L (12-78); Albumin 3.9 g/dL (3.4-5.0); Anion Gap 8 meq/L (5-15); Aspartate Aminotransferase 53 U/L (15-37); Blood Urea Nitrogen 31 mg/dL (7-18); Carbon Dioxide 31.2 meq/L (21.0-32.0); Chloride 99 meq/L (98-107); Glomerular Filtration Rate 51 mL/min (>89); Glucose,Random 82 mg/dL (74-106); Potassium 4.1 meq/L (3.5-5.1); Sodium 138 meq/L (136-145)
[2018-09-23 16:33] LABS: Activated Partial Thrombo Time 30.6 sec (23.4-31.7); Prothrombin Time 10.1 sec (9.8-11.6)
[2018-09-23 16:54] LABS: Creatine Kinase 299 U/L (39-308)
[2018-09-23] MEDS ORDERED: Sodium Chlor 0.9% Inj 500 ML IV.SIG SCH (17:00)
[2018-09-23 17:08] LABS: Creatine Kinase MB 5.3 ng/mL (0.5-3.6)
--- NOTE | 2018-09-23 18:26 | CT ---
EXAM DATE: 09/23/2018 6:13 PM EST AGE/SEX: 68 years / Male INDICATIONS: Dizziness and fluctuating blood pressure; rule out pulmonary embolus. CLINICAL DATA: This is the patient's initial encounter. Patient reports that signs and symptoms have been present for 1 day and indicates a pain score of 0/10. MEDICAL/SURGICAL HISTORY: Carcinoma, prostatic. Hypertension. None. Hernia repair RADIATION DOSE: 21.50 CTDI (mGy) COMPARISON: No prior exams available for comparison. TECHNIQUE: Volumetric scanning was performed using a multi-row detector CT scanner during bolus infu vamshi of 74 ml Omnipaque 350 (iohexol) nonionic water-soluble contrast as a single exam dose. The veto a was post processed with a variety of visualization algorithms including full volume maximum intensi ty projection and sliding thin slab reformation. Using automated exposure control and adjustment of the mA and/or kV according to patient size, radiation dose was kept as low as reasonably achievable t o obtain optimal diagnostic quality images. DICOM format image data is available electronically for review and comparison. FINDINGS: There is no pulmonary embolus. Heart size within normal limits. Scattered coronary artery calcification noted both right and left-si ded. Shotty mediastinal and bilateral hilar lymph nodes are present and some of them are partially calcifi ed. No infiltrate, effusion or pneumothorax. Scattered calcified and noncalcified bilateral pulmonary nod ules are present. Largest noncalcified nodules in the left lower lobe and measures 7 mm. CONCLUSION: 1. No pulmonary embolus. 2. Scattered subcentimeter pulmonary nodules and follow-up noncontrast chest CT in 6 months is recom mended. 3. Clear lungs otherwise. No pneumonia. 4. Nonspecific upper limits of normal mediastinal and hilar lymph nodes. Some reflect previous granu lomatous exposure. Electronically signed by: Parmjit Samuel MD 09/23/2018 6:25 PM EST
--- NOTE | 2018-09-23 18:37 | ED ---
HPI General Chief Complaint: Chest Pain Stated Complaint: vertigo Time Seen by Provider: 09/23/18 14:04 Source: patient and family Mode of arrival: ambulatory Limitations: no limitations History of Present Illness HPI narrative: 68-year-old male the presents to the ED for evaluation of dizziness, palpitations, possible stress. Per patient he has been having dizziness for about 3 weeks now. Per patient is getting more significant. Per patient unfortunately he lost his on Tuesday of this week. Per family and patient he has been going downhill since this happened. He has not been eating or drinking. He has not been taking care of himself. He apparently does take a diuretic for lower leg edema thought per patient has drastically improved. Per patient he does not know if this is related to that. He denies any chest pain but states that he does feel pressure on his chest and feels palpitations on occasion and sometimes when he gets worked up. He denies any urinary or bowel movement issues. No fevers chills or sweats. Per patient he was seen at [facility] about a week ago for evaluation of the dizziness and was told that his potassium was low. Per patient he was given potassium IV and released. He denies any other medical issues at this time. Overall patient states that he feels well other than the dizziness. Apparently per family they are concerned the patient might have sick heart syndrome and they are concerned about this as well as possible cardiac disease. Patient currently denies any pain but states that whenever he has the pressure he feels like a 4 out of 10 and is not really painful but pressure-like. No recent travel. No numbness, tingling, weakness. Related Data Home Medications Medication Instructions Recorded Confirmed allopurinol 300 mg PO DAILY 09/23/18 09/23/18 amlodipine 5 mg PO DAILY 09/23/18 09/23/18 aspirin [Aspirin Low Dose] 81 mg PO DAILY 09/23/18 09/23/18 folic acid 1 mg PO DAILY 09/23/18 09/23/18 losartan-hydrochlorothiazide 1 tab PO DAILY 09/23/18 09/23/18 methotrexate sodium 7.5 mg SUBCUT QWEEK 09/23/18 09/23/18 omeprazole 20 mg PO DAILY 09/23/18 09/23/18 simvastatin 20 mg PO QPM 11/10/18 11/10/18 Allergies Allergy/AdvReac Type Severity Reaction Status Date / Time No Known Allergies Allergy Verified 09/23/18 17:40 Review of Systems ROS: all other systems reviewed are negative [facility] Medical History Medical History Hypertension (Acute) Prostate cancer (Acute) Sarcoidosis (Acute) Surgical History Surgical History H/O hernia repair (Acute) H/O knee surgery (Acute) H/O shoulder surgery (Acute) Family History Family History Other Family history of acute myocardial infarction Family history of diabetes mellitus Family history of hypertension Social History Social History Substance History: No History of Abuse Second Hand Smoke Exposure: No Smoking Status: Former smoker Tobacco Type: Cigarettes How Often Do You Have a Drink Containing Alcohol: Monthly or less Recent Travel in [facility] within the Last 8 Weeks: No Recent Out of Country Travel within the Last 8 Weeks: No Immunization History Tetanus Immunization: Unsure Exam Narrative Exam Narrative: GENERAL: Well-appearing SKIN: Focused skin assessment warm/dry. HEAD: Atraumatic. Normocephalic. EYES: Pupils equal and round. No scleral icterus. No injection or drainage. ENT: No nasal bleeding or discharge. Mucous membranes pink and moist. NECK: Trachea midline. No JVD. CARDIOVASCULAR: Regular rate and rhythm. No murmur appreciated. RESPIRATORY: No accessory muscle use. Clear to auscultation. Breath sounds equal bilaterally. GASTROINTESTINAL: Abdomen soft, non-tender, nondistended. Hepatic and splenic margins not palpable. MUSCULOSKELETAL: No obvious deformities. No clubbing. No cyanosis. No edema. Full range of motion of the upper and lower extremities bilaterally. 2+ pulses bilaterally. NEUROLOGICAL: Awake and alert. No obvious cranial nerve deficits. Motor grossly within normal limits. Normal speech. PSYCHIATRIC: Appropriate mood and affect; insight and judgment normal. Course Initial Documented Vital Signs Temperature 98.5 F 09/23/18 13:25 Pulse Rate 97 H 09/23/18 13:25 Respiratory Rate 19 09/23/18 13:25 Blood Pressure 116/74 09/23/18 13:25 Pulse Oximetry 96 09/23/18 13:25 Last Documented Vital Signs Temperature 98.5 F 09/23/18 13:25 Pulse Rate 53 L 09/23/18 16:32 Respiratory Rate 15 09/23/18 16:32 Blood Pressure 116/68 09/23/18 16:32 Pulse Oximetry 98 09/23/18 16:32 Medical Decision Making MANUEL Attestation MANUEL supervised visit: Yes Attestation: I, Dr. barron, have reviewed the advance practice practitioner's documentation and am in agreement, met with the patient face to face, made the diagnosis, and the medical decision making was done by me. *My assessment and Findings: 68-year-old male presents with chest pain. He recently lost his . Patient does have cardiac risk factors with family history, hypertension and age. Initial workup is normal. Patient agrees to chest pain center observation MDM Narrative Medical decision making narrative: 68-year-old male the presents to the ED for evaluation of dizziness, chest pressure and other complaints. Patient was properly examined and was found to have signs and symptoms consistent with appears to be possible cardiac in nature. The suspect that stress is related to all of the symptoms as patient recently lost his and apparently his had multiple medical issues before she . At this time labs and imaging were ordered. Labs and imaging were essentially unremarkable at this time other than positive d-dimer. CTA was done and was essentially negative. My attending Dr. Barron herself spoke with the patient and recommends admission for obscured patient was admitted to the chest pain center by me. Patient agrees to proceed with this. Medical Screen Exam Complete: Yes Emergency Medical Condition: Yes Differential Diagnosis Differential Diagnosis: Chest pain versus typical chest pain versus dizziness versus syncope versus presyncope versus normal exam Medical Records Medical records reviewed: Yes I reviewed the patient's medical records. Lab Data Lab results reviewed: Yes I reviewed the patient's lab results. Result diagrams: 09/23/18 15:20 09/23/18 15:20 Lab Results 09/23/18 09/23/18 09/23/18 Range/Units 15:20 15:20 15:20 WBC 8.1 (4.0-11.0) th/mm3 RBC 4.39 L (4.50-5.90) mil/mm3 Hgb 13.8 (13.0-17.0) gm/dL Hct 40.3 (39.0-51.0) % MCV 91.7 (80.0-100.0) fL MCH 31.4 (27.0-34.0) pg MCHC 34.3 (32.0-36.0) % RDW 14.6 (11.6-17.2) % Plt Count 243 (150-450) th/mm3 MPV 8.4 (7.0-11.0) fL Neut % (Auto) 67.9 (16.0-70.0) % Lymph % (Auto) 22.2 (9.0-44.0) % [place] % (Auto) 7.8 (0.0-8.0) % Eos % (Auto) 0.8 (0.0-4.0) % Baso % (Auto) 1.3 (0.0-2.0) % Neut # (Auto) 5.5 (1.8-7.7) th/mm3 Lymph # (Auto) 1.8 (1.0-4.8) th/mm3 [place] # (Auto) 0.6 (0.0-0.9) th/mm3 Eos # (Auto) 0.1 (0.0-0.4) th/mm3 Baso # (Auto) 0.1 (0.0-0.2) th/mm3 WBC Differential . Differential Comment Auto diff final PT (9.8-11.6) sec INR Ratio APTT (23.4-31.7) sec D-Dimer Quant (PE/DVT) 0.61 H (0.00-0.50) mg/L FEU Sodium 138 (136-145) meq/L Potassium 4.1 (3.5-5.1) meq/L Chloride 99 (98-107) meq/L Carbon Dioxide 31.2 (21.0-32.0) meq/L Anion Gap 8 (5-15) meq/L BUN 31 H (7-18) mg/dL Creatinine 1.39 H (0.60-1.30) mg/dL Estimated GFR 51 L (>89) mL/min Random Glucose 82 (74-106) mg/dL Calcium 9.0 (8.5-10.1) mg/dL Magnesium (1.5-2.5) mg/dL Total Bilirubin 0.9 (0.2-1.0) mg/dL AST 53 H (15-37) U/L ALT 40 (12-78) U/L Alkaline Phosphatase 82 (45-117) U/L Total Creatine Kinase (39-308) U/L CK-MB (CK-2) (0.5-3.6) ng/mL Troponin I Less than 0.02 L (0.02-0.05) ng/mL B-Natriuretic Peptide (0-100) pg/mL Total Protein 7.7 (6.4-8.2) g/dL Albumin 3.9 (3.4-5.0) g/dL 09/23/18 09/23/18 09/23/18 Range/Units 15:20 15:20 15:20 WBC (4.0-11.0) th/mm3 RBC (4.50-5.90) mil/mm3 Hgb (13.0-17.0) gm/dL Hct (39.0-51.0) % MCV (80.0-100.0) fL MCH (27.0-34.0) pg MCHC (32.0-36.0) % RDW (11.6-17.2) % Plt Count (150-450) th/mm3 MPV (7.0-11.0) fL Neut % (Auto) (16.0-70.0) % Lymph % (Auto) (9.0-44.0) % [place] % (Auto) (0.0-8.0) % Eos % (Auto) (0.0-4.0) % Baso % (Auto) (0.0-2.0) % Neut # (Auto) (1.8-7.7) th/mm3 Lymph # (Auto) (1.0-4.8) th/mm3 [place] # (Auto) (0.0-0.9) th/mm3 Eos # (Auto) (0.0-0.4) th/mm3 Baso # (Auto) (0.0-0.2) th/mm3 WBC Differential Differential Comment PT 10.1 (9.8-11.6) sec INR 1.0 Ratio APTT 30.6 (23.4-31.7) sec D-Dimer Quant (PE/DVT) (0.00-0.50) mg/L FEU Sodium (136-145) meq/L Potassium (3.5-5.1) meq/L Chloride (98-107) meq/L Carbon Dioxide (21.0-32.0) meq/L Anion Gap (5-15) meq/L BUN (7-18) mg/dL Creatinine (0.60-1.30) mg/dL Estimated GFR (>89) mL/min Random Glucose (74-106) mg/dL Calcium (8.5-10.1) mg/dL Magnesium 2.0 (1.5-2.5) mg/dL Total Bilirubin (0.2-1.0) mg/dL AST (15-37) U/L ALT (12-78) U/L Alkaline Phosphatase (45-117) U/L Total Creatine Kinase 299 (39-308) U/L CK-MB (CK-2) 5.3 H (0.5-3.6) ng/mL Troponin I (0.02-0.05) ng/mL B-Natriuretic Peptide 11 (0-100) pg/mL Total Protein (6.4-8.2) g/dL Albumin (3.4-5.0) g/dL Imaging Data Attestation: I personally reviewed and interpreted this imaging study as follows : Radiologist's impression: Chest X-Ray 09/23/18 14:14 CONCLUSION: No evidence of acute cardiopulmonary disease. Chest CTA 09/23/18 16:04 CONCLUSION: 1. No pulmonary embolus. 2. Scattered subcentimeter pulmonary nodules and follow-up noncontrast chest CT in 6 months is recommended. 3. Clear lungs otherwise. No pneumonia. 4. Nonspecific upper limits of normal mediastinal and hilar lymph nodes. Some reflect previous granulomatous exposure. ECG Data Attestation: I personally reviewed and interpreted this ECG as follows: Interpretation: EKG shows sinus rhythm with no sign of acute ischemia and arrhythmia read by me and attending. Discharge Plan Discharge Disposition Patient Disposition: 30 Still Patient Discharge Details Diagnosis: Chest pain Physicians Team ED Provider: Ronda Barron ED Midlevel Provider: Gonzalo Berger Primary Care Provider: Nahid Cole Attending Provider: Neo Presley ED Status: Admitted Observation Patient
[2018-09-23] MEDS ORDERED: Acetaminophen 500 MG Tablet PO PRN (19:11)
[2018-09-23 20:30] LABS: Creatine Kinase 156 U/L (39-308)
[2018-09-24 03:12] LABS: Creatine Kinase 152 U/L (39-308)
[2018-09-24 08:30] VITALS: RESP 20; O2SAT 97
[2018-09-24] MEDS ORDERED: Regadenoson Inj 0.4 MG/5 ML Syringe IV.PUSH ONE (09:42)
--- NOTE | 2018-09-24 10:24 | P.HPCA ---
History of Present Illness Primary Care Physician: Nahid Cole MD Chief Complaint: Chest pain History of Present Illness: This is a 68-year-old male history of hypertension, hyperlipidemia, GERD, gout, and sarcoid uveitis presents to ED with primary complaint of being dizzy. He states it feels as though he is unsteady. He then states he has been under a lot of stress and is very depressed. His of 39 years just 3 days ago. She had hawkins along illness after having valvular heart repair 2 months ago at [facility]. States that she was intubated for 2 months and 3 days ago. States he has felt weak and unsteady. The ED physician dictation states that he had complained of pressure in his chest and patient now states "I do not think I really had chest pressure." When asked if he had any type of discomfort. States he really cannot recall at this moment. States his memory is not as good as it usually is as he is dealing with a lot of planning is under a lot of stress. Cannot recall being short of breath, nauseous, diaphoretic. He states he and his family were concerned that may been his heart. They are concerned he may have "sick heart syndrome." Cannot recall prior cardiac workup. History of hypertension, hyperlipidemia, GERD, sarcoid uveitis, gout. Denies diabetes and known CAD. States that his father age 74 of congestive heart failure really is not aware of any other cardiac issues prior to that. Non-smoker. Rarely has alcohol. Denies illicit drug use. - Diagnosis (1) Chest pain (2) Hypertension (3) Hyperlipidemia (4) GERD (gastroesophageal reflux disease) Review of Systems General: Patient denies fevers, chills, and recent travel. HEENT: Patient denies headache, sore throat, difficulty swallowing. Cardiovascular: Has the chest discomfort as mentioned above. Denies sensation of heart beating rapidly or irregularly. No syncope. Denies diaphoresis. Respiratory: Denies shortness of breath or inspirational chest discomfort. Denies coughing wheezing or hemoptysis. GI: Patient denies nausea, vomiting, diarrhea, abdominal pain, bloody stools. Musculoskeletal: Patient denies joint pain or edema. Denies calf pain or edema. Neurovascular: Patient denies numbness, tingling, weakness in extremities. Denies headache. Endocrine: Denies polyuria and polydipsia. Hematologic: Denies easy bruising. Skin: Denies rash or itching. PMFSH - History History Provided By: Patient - Medical History Medical History: Medical History (Last Reviewed 09/23/18 @ 19:08 by TASHIA Rodríguez) Hypertension Prostate cancer Sarcoidosis - Surgical History Surgical History: Surgical History (Last Reviewed 09/23/18 @ 19:08 by TASHIA Rodríguez) H/O hernia repair H/O knee surgery H/O shoulder surgery - Family History Family History: Family History (Last Reviewed 09/23/18 @ 19:08 by TASHIA Rodríguez) Other Family history of acute myocardial infarction Family history of diabetes mellitus Family history of hypertension - Tobacco History Second Hand Smoke Exposure: No Smoking Status: Former smoker Tobacco Type: Cigarettes - Alcohol History How Often Do You Have a Drink Containing Alcohol: Monthly or less - Substance Use History Substance History: No History of Abuse - Travel History Recent Travel in the [place] Within the Last 8 Weeks: No Recent Travel Out of the Country Within the Last 8 Weeks: No - Immunization History Tetanus Immunization: Unsure Medications and Allergies Active Medications: Active Medications Acetaminophen (Tylenol) 500 mg PO Q4H PRN PRN Reason: HEADACHE Hydrocodone Bitart/Acetaminophen ([place] 7.5/325) 1 tab PO Q4H PRN PRN Reason: PAIN SCALE 1 TO 7 Ondansetron HCl (Zofran Inj) 4 mg IV.PUSH Q6H PRN PRN Reason: NAUSEA Sodium Chloride (Ns Flush) 2 ml IV.FLUSH UNSCH PRN PRN Reason: FLUSH AFTER USING IV ACCESS Sodium Chloride (Ns Flush) 2 ml IV.FLUSH BID [facility] Last Admin: 09/23/18 21:49 Dose: 2 ml Sodium Chloride (Ns Flush) 2 ml IV.FLUSH PRN PRN PRN Reason: FLUSH AFTER USING IV ACCESS Sodium Chloride (Ns Flush) 2 ml IV.FLUSH BID [facility] Last Admin: 09/23/18 21:50 Dose: Not Given Sodium Chloride (Ns Flush) 2 ml IV.FLUSH PRN PRN PRN Reason: FLUSH AFTER USING IV ACCESS Allergies Allergy/AdvReac Type Severity Reaction Status Date / Time No Known Allergies Allergy Verified 09/23/18 17:40 Home Medications Medication Instructions Recorded Confirmed Type allopurinol 300 mg PO DAILY 09/23/18 09/23/18 History amlodipine 5 mg PO DAILY 09/23/18 09/23/18 History aspirin [Aspirin Low Dose] 81 mg PO DAILY 09/23/18 09/23/18 History folic acid 1 mg PO DAILY 09/23/18 09/23/18 History losartan-hydrochlorothiazide 1 tab PO DAILY 09/23/18 09/23/18 History methotrexate sodium 7.5 mg SUBCUT QWEEK 09/23/18 09/23/18 History omeprazole 20 mg PO DAILY 09/23/18 09/23/18 History simvastatin 20 mg PO QPM 09/23/18 09/23/18 History Exam Vital signs: Vital Signs 09/23/18 13:25 09/23/18 15:15 09/23/18 15:20 Temperature 98.5 F Pulse Rate 97 H 60 58 L Respiratory Rate 19 18 Blood Pressure 116/74 116/65 Pulse Oximetry 96 100 100 09/23/18 16:32 09/23/18 19:44 09/23/18 20:00 Temperature 98.2 F Pulse Rate 53 L 60 61 Respiratory Rate 15 12 18 Blood Pressure 116/68 112/58 L 111/60 Pulse Oximetry 98 97 97 09/23/18 20:05 09/23/18 21:10 09/23/18 21:45 Temperature Pulse Rate 60 Respiratory Rate Blood Pressure Pulse Oximetry 97 98 09/24/18 00:00 09/24/18 00:15 09/24/18 03:42 Temperature 98.1 F 98 F Pulse Rate 64 65 57 L Respiratory Rate 18 18 Blood Pressure 104/67 101/57 L Pulse Oximetry 95 94 L 09/24/18 08:00 Temperature 98.1 F Pulse Rate 59 L Respiratory Rate 20 Blood Pressure 113/71 Pulse Oximetry 97 Intake & Output 09/23/18 09/24/18 09/24/18 18:59 06:59 18:59 Intake Total 500 / 500 Balance 500 / 500 Weight 102.512 kg 102.51 kg Intake: IV 500 / 500 NS Inj 500 ML @ 1000 mls/hr IV. 500 / 500 SIG BOLUS AUBREY Rx#:[id number] Other: # Voids 1 Date of Last Bowel Movement 10/01/18 Weight On Admission 102.51 kg Narrative: GENERAL: This is a well-nourished, well-developed patient, in no apparent distress. Patient speaks in clear complete sentences. Patient is pleasant. HEENT: Head is atraumatic and normocephalic. Neck is supple without lymphadenopathy and trachea is midline. No JVD or carotid bruits. CARDIOVASCULAR: Regular rate and rhythm without murmurs, gallops, or rubs. RESPIRATORY: Clear to auscultation. Breath sounds equal bilaterally. No wheezes , rales, or rhonchi. Chest wall is nontender. No use of accessory muscles. GASTROINTESTINAL: Abdomen is nontender, nondistended. Abdomen soft. No obvious pulsatile mass or bruit. No CVA tenderness. Strong femoral pulses bilaterally. Normal bowel sounds in all quadrants. MUSCULOSKELETAL: Patient is moving upper and lower extremities freely. No calf tenderness or edema, no Homans sign. Strong pulses in upper and lower extremities. NEUROLOGICAL: Patient is alert and oriented. Cranial nerves 2-12 are grossly intact. No focal deficits and speech is clear. SKIN: No rash and turgor is normal. Results 09/23/18 15:20 09/23/18 15:20 Cardiac Enzymes 09/23/18 09/23/18 09/23/18 Range/Units 01:00 15:20 15:20 AST 53 H (15-37) U/L CK-MB (CK-2) (0.5-3.6) ng/mL Troponin I Less than 0.02 L Less than 0.02 L (0.02-0.05) ng/mL B-Natriuretic Peptide 11 (0-100) pg/mL 09/23/18 09/23/18 Range/Units 15:20 19:40 AST (15-37) U/L CK-MB (CK-2) 5.3 H (0.5-3.6) ng/mL Troponin I Less than 0.02 L (0.02-0.05) ng/mL B-Natriuretic Peptide (0-100) pg/mL Coagulation 09/23/18 09/23/18 Range/Units 15:20 15:20 PT 10.1 (9.8-11.6) sec APTT 30.6 (23.4-31.7) sec B-Natriuretic Peptide 11 (0-100) pg/mL CBC 09/23/18 Range/Units 15:20 WBC 8.1 (4.0-11.0) th/mm3 RBC 4.39 L (4.50-5.90) mil/mm3 Hgb 13.8 (13.0-17.0) gm/dL Hct 40.3 (39.0-51.0) % Plt Count 243 (150-450) th/mm3 Neut # (Auto) 5.5 (1.8-7.7) th/mm3 Lymph # (Auto) 1.8 (1.0-4.8) th/mm3 [place] # (Auto) 0.6 (0.0-0.9) th/mm3 Eos # (Auto) 0.1 (0.0-0.4) th/mm3 Baso # (Auto) 0.1 (0.0-0.2) th/mm3 Comprehensive Metabolic Panel 09/23/18 Range/Units 15:20 Sodium 138 (136-145) meq/L Potassium 4.1 (3.5-5.1) meq/L Chloride 99 (98-107) meq/L Carbon Dioxide 31.2 (21.0-32.0) meq/L BUN 31 H (7-18) mg/dL Creatinine 1.39 H (0.60-1.30) mg/dL Calcium 9.0 (8.5-10.1) mg/dL AST 53 H (15-37) U/L ALT 40 (12-78) U/L Alkaline Phosphatase 82 (45-117) U/L Total Protein 7.7 (6.4-8.2) g/dL Albumin 3.9 (3.4-5.0) g/dL Intake and Output 09/23/18 09/24/18 09/24/18 22:59 06:59 14:59 Intake Total 500 / 500 Balance 500 / 500 Intake: IV 500 / 500 NS Inj 500 ML @ 1000 mls/hr IV. 500 / 500 SIG BOLUS AUBREY Rx#:[id number] Other: # Voids 1 Date of Last Bowel Movement 10/01/18 Weight 102.51 kg 102.51 kg Weight On Admission 102.51 kg - Imaging and Cardiology Imaging: Impressions Chest X-Ray 09/23/18 14:14 CONCLUSION: No evidence of acute cardiopulmonary disease. Chest CTA 09/23/18 16:04 CONCLUSION: 1. No pulmonary embolus. 2. Scattered subcentimeter pulmonary nodules and follow-up noncontrast chest CT in 6 months is recommended. 3. Clear lungs otherwise. No pneumonia. 4. Nonspecific upper limits of normal mediastinal and hilar lymph nodes. Some reflect previous granulomatous exposure. EKG interpretations - EKG EKG shows: sinus rhythm (EKG is sinus rhythm with right bundle branch block.) Caprini VTE Risk Assessment Caprini VTE Risk Assessment: Moderate/High Risk (score >= 2) Caprini Risk Assessment Model: Point Value = 1 Point Value = 2 Point Value = 3 Point Value = 5 Age 41-60 Minor surgery BMI > 25 kg/m2 Swollen legs Varicose veins or History of unexplained or recurrent spontaneous Oral contraceptives or hormone replacement Sepsis (< 1 month) Serious lung disease, including pneumonia (< 1 month) Abnormal pulmonary function Acute myocardial infarction Congestive heart failure (< 1 month) History of inflammatory bowel disease Medical patient at bed rest Age 61-74 Arthroscopic surgery Major open surgery (> 45 min) Laparoscopic surgery (> 45 min) Malignancy Confined to bed (> 72 hours) Immobilizing plaster cast Central venous access Age >= 75 History of VTE Family history of VTE Factor V Leiden Prothrombin [id number] Lupus anticoagulant Anticardiolipin antibodies Elevated serum homocysteine Heparin-induced thrombocytopenia Other congenital or acquired thrombophilia Stroke (< 1 month) Elective arthroplasty Hip, pelvis, or leg fracture Acute spinal cord injury (< 1 month) Prophylaxis Regimen: Total Risk Factor Score Risk Level Prophylaxis Regimen 0-1 Low Early ambulation 2 Moderate Order ONE of the following: *Sequential Compression Device (SCD) *Heparin 5000 units SQ BID 3-4 Higher Order ONE of the following medications: *Heparin 5000 units SQ TID *Enoxaparin/Lovenox 40 mg SQ daily (WT < 150 kg, CrCl > 30 mL/min) *Enoxaparin/Lovenox 30 mg SQ daily (WT < 150 kg, CrCl > 10-29 mL/min) *Enoxaparin/Lovenox 30 mg SQ BID (WT < 150 kg, CrCl > 30 mL/min) AND/OR *Sequential Compression Device (SCD) 5 or more Highest Order ONE of the following medications: *Heparin 5000 units SQ TID (Preferred with Epidurals) *Enoxaparin/Lovenox 40 mg SQ daily (WT < 150 kg, CrCl > 30 mL/min) *Enoxaparin/Lovenox 30 mg SQ daily (WT < 150 kg, CrCl > 10-29 mL/min) *Enoxaparin/Lovenox 30 mg SQ BID (WT < 150 kg, CrCl > 30 mL/min) AND *Sequential Compression Device (SCD) Assessment and Plan - Assessment (1) Chest pain Code(s): R07.9 - Chest pain, unspecified Status: Acute (2) Hypertension Code(s): I10 - Essential (primary) hypertension Status: Acute (3) Hyperlipidemia Code(s): E78.5 - Hyperlipidemia, unspecified Status: Acute (4) GERD (gastroesophageal reflux disease) Code(s): K21.9 - Gastro-esophageal reflux disease without esophagitis Status: Acute - Plan * Chest pain: Patient has had serial cardiac enzymes and EKGs for ruling out purposes. At this point he really cannot recall if he had chest discomforts yesterday or not. However he does admit that he was concerned that symptoms he was having yesterday was related to his heart and states that his family also were concerned about the same. Patient will be seen by Dr. Presley of cardiology in the chest pain center. He will undergo a Lexiscan and will be discharge if stress test is nonischemic with instructions to follow-up with PCP and return to ED for interval issues. * Hypertension: Continue medication. * Hyperlipidemia: Continue medication. Patient is stable at this time. He is agreeable to this plan. H&P: Quality - VTE Deep Vein Thrombosis/Pulmonary Embolism Present on Admission: No (1) Chest pain Qualifiers: Chest pain type: unspecified Qualified Code(s): R07.9 - Chest pain, unspecified
[2018-09-24] MEDS ORDERED: Pantoprazole Sodium 20 MG DR Tablet PO SCH (10:45)
--- NOTE | 2018-09-24 11:00 | NM ---
EXAM DATE: 09/24/2018 10:54 AM EST AGE/SEX: 68 years / Male INDICATIONS:Angina. . Mid chest pain for three weeks. CLINICAL DATA: This is the patient's initial encounter. Patient reports that signs and symptoms have been present for 1 day and indicates a pain score of 4/10. MEDICAL/SURGICAL HISTORY: Carcinoma, prostatic. Hypertension. Inguinal hernia repair. COMPARISON: . No external comparison. DOSE: 11.0 mCi Tc 99m Myoview at rest 35.0 mCi [id number] at stress 0.4 mg Lexiscan STRESS SYMPTOMS: Nausea. EJECTION FRACTION: 60 % TECHNIQUE: The patient underwent pharmacologic stress with infusion of prescribed dose. Continuous ECG tracing was monitored during stress. Gated SPECT imaging was performed after stress and conventi onal SPECT imaging was performed at rest. The examination was performed on a SPECT/CT scanner, both attenuation and non-corrected datasets were reviewed. FINDINGS: Distribution: The maximum perfused segment at stress is in the septal wall. Perfusion Study: There is a small anterior wall perfusion defect, fixed as well as a small perfusio n defect of the lateral wall and apex, fixed. No reversible perfusion defects are identified. Gated Study: There are intact wall motion and wall thickening without hypokinetic or dyskinetic segm ents. The ejection fraction is calculated at 60%. RISK CATEGORY: Low (<1% Annual Motality Rate) CONCLUSION: 1. Reversible perfusion defects are identified to suggest breast and is myocardial ischemia. Electronically signed by: Gregory Camacho MD 09/24/2018 10:59 AM EST
--- NOTE | 2018-09-24 11:42 | ECG ---
Date Performed: 09/23/2018 Time Performed: 23:15:36 PTAGE: 68 years EKG: PACs MARKED LEFT AXIS DEVIATION RIGHT BUNDLE BRANCH BLOCK ABNORMAL ECG PREVIOUS TRACING : 09/23/2018 19.53 Since previous tracing, no significant change noted DOCTOR: Neo Presley Interpretating Date/Time 09/24/2018 11:41:04
--- NOTE | 2018-09-24 11:46 | ECG ---
Date Performed: 09/23/2018 Time Performed: 19:53:04 PTAGE: 68 years EKG: SINUS BRADYCARDIA WITH OCCASIONAL SUPRAVENTRICULAR PREMATURE COMPLEXES RIGHT BUNDLE BRANCH BLOCK ABNORMAL ECG PREVIOUS TRACING : 09/23/2018 13.39 Compared to previous tracing, rhythm change from atrial fib . to NSR. DOCTOR: Neo Presley Interpretating Date/Time 09/24/2018 11:44:36
[2018-09-24 12:17] VITALS: BP 113/68; TEMP 97.7
[2018-09-24 13:53] VITALS: PULSE 54
--- NOTE | 2018-09-24 13:57 | TR ---
Date Performed: 09/24/2018 Time Performed: 09:54:35 DOCTOR: Neo Presley DRUG LIST: CLINICAL HISTORY: ANGINA REASON FOR TEST: Angina REASON FOR ENDING: OBSERVATION: CONCLUSION: COMMENTS: Lexiscan stress test was performed under standard four minute protocol. Radionuclide was injected one minute prior to ending the test. No electrocardiographic abormalities were present t o suggest ischemia. Nuclear imaging and interpretation are pending.
== END 2018-09-24 13:56 | disposition home or self-care (01) ==
LOC: NEDA 13:01 → NEPC 13:01 → NEPFCDU 20:20